=== PATIENT | female | born 1945 | race Two or more races ===

== ENCOUNTER → 2024-08-10 | Day surgery (SDC) | payer OTHER ==
[~2024-08-10] MED LIST: BUPIVACAINE HCL/Mpf 0.5% 10ML VIAL ONE; CELEBREX200MG PO; DIBUCAINE 30 GM TUBE ONE; ENALAPRILAT DIHYDRATE 1.25 MG/ML VIAL IV ONE; ERTAPENEM SODIUM 1,000 MG VIAL ONE; HEMOSTATIC MATRIX 1 KIT KIT TOP ONE; LEVSIN0.125 MG; LIDOCAINE HCL 1%/EPINEPHRINE 20ML VIAL IJ ONE; POVIDONE-IODINE 118 ML BOTT TOP ONE
== END | disposition home or self-care (01) ==
LOC: ADM 08-03 12:15 → CIR.AMB 09:15
PROVIDERS: ATTEND Colon & Rectal Surgery
DX: K64.2 Third degree hemorrhoids (principal); K64.4 Residual hemorrhoidal skin tags; K57.30 Diverticulosis of large intestine without perforation or abscess without bleeding; Z88.1 Allergy status to other antibiotic agents; M19.90 Unspecified osteoarthritis, unspecified site

== ENCOUNTER 2024-08-15 19:20 | Emergency (ER) | payer OTHER ==
[~2024-08-15] VITALS: Ht 157.5 cm; Wt 54.4 kg
[~2024-08-15 19:20] MED LIST changes: -BUPIVACAINE HCL/Mpf 0.5% 10ML VIAL ONE; -CELEBREX200MG PO; -DIBUCAINE 30 GM TUBE ONE; -ENALAPRILAT DIHYDRATE 1.25 MG/ML VIAL IV ONE; -ERTAPENEM SODIUM 1,000 MG VIAL ONE; -HEMOSTATIC MATRIX 1 KIT KIT TOP ONE; -LIDOCAINE HCL 1%/EPINEPHRINE 20ML VIAL IJ ONE; -POVIDONE-IODINE 118 ML BOTT TOP ONE
[2024-08-15] MEDS ORDERED: KETOROLAC TROMETHAMINE 30 MG VIAL IV ONE (21:15)
[2024-08-15] MEDS ORDERED: CELEBREX200MG PO (21:26)
== END 2024-08-15 21:30 ==
LOC: ER 19:23
DX: K62.89 Other specified diseases of anus and rectum (principal); Z98.890 Other specified postprocedural states; Z87.19 Personal history of other diseases of the digestive system; R10.9 Unspecified abdominal pain; Z88.1 Allergy status to other antibiotic agents; Z88.2 Allergy status to sulfonamides
CPT/HCPCS: 96365; 99282; J1885